=== PATIENT | male | born 1965 | race Caucasian/White ===

== ENCOUNTER 2018-05-29 09:46 | Emergency (ER) | payer MEDICAID, OTHER ==
[~2018-05-29] VITALS: Ht 177.8 cm; Wt 91.0 kg
[2018-05-29 09:53] VITALS: BP 172/105
[2018-05-29] MEDS ORDERED: GABA-532 PO (10:53)
== END 2018-05-29 11:06 | disposition home or self-care (01) ==
LOC: ER 09:46
DX: F10.20 Alcohol dependence, uncomplicated (principal); F17.200 Nicotine dependence, unspecified, uncomplicated; Y90.9 Presence of alcohol in blood, level not specified
CPT/HCPCS: 99283

== ENCOUNTER 2018-12-30 20:13 | Observation (INO) | payer MEDICAID, OTHER ==
[~2018-12-30] VITALS: Ht 177.8 cm; Wt 98.7 kg
[~2018-12-30 20:13] MED LIST: GABA-532 PO
[2018-12-30 20:42] LABS: BASOPHILS % (AUTO) 0.6 % (0-1); EOSINOPHILS # (AUTO) 0.1 X10'3 (0-0.9); EOSINOPHILS % (AUTO) 1.7 % (0-6); HEMATOCRIT 50.4 % (42.0-52.0); HEMOGLOBIN 17.4 g/dl (14.0-17.9); LYMPHOCYTES # (AUTO) 1.3 X10'3 (1.1-4.8); MEAN CORPUSCULAR HEMOGLOBIN 33.9 PG (27.0-31.0); MEAN CORPUSCULAR HGB CONC 34.6 g/dL (33.0-36.5); MEAN PLATELET VOLUME 6.3 FL (7.4-10.4); MONOCYTES # (AUTO) 0.5 X10'3 (0-0.9); MONOCYTES % (AUTO) 10.5 % (2-12); NEUTROPHILS # (AUTO) 3.2 X10'3 (1.8-7.7); NEUTROPHILS % (AUTO) 61.2 % (42-75); PLATELET COUNT 187 X10'3 (140-440); RED BLOOD COUNT 5.14 X10'6 (4.70-6.10); RED CELL DISTRIBUTION WIDTH 15.3 % (11.5-14.5); WHITE BLOOD COUNT 5.2 X10'3 (4.5-11.0)
[2018-12-30 20:55] LABS: PARTIAL THROMBOPLASTIN TIME 28 SECONDS (22-32)
[2018-12-30 20:57] LABS: ALANINE AMINOTRANSFERASE 93 U/L (12-78); ALBUMIN 3.8 G/DL (3.4-5.0); ALBUMIN/GLOBULIN RATIO 0.9 (1.1-1.5); ALKALINE PHOSPHATASE 89 IU/L (46-116); ANION GAP 13 (8-16); ASPARTATE AMINO TRANSFERASE 83 U/L (10-37); BILIRUBIN,TOTAL 0.7 MG/DL (0.1-1.0); BLOOD UREA NITROGEN 14 MG/DL (7-18); BUN/CREATININE RATIO 13.5 (5.4-32.0); CALCIUM 8.1 MG/DL (8.5-10.1); CHLORIDE 102 MMOL/L (99-107); CREATININE 1.04 MG/DL (0.60-1.10); GLUCOSE 122 MG/DL (70-104); POTASSIUM 3.7 MMOL/L (3.5-5.1); SODIUM 140 MMOL/L (135-145); TOTAL CARBON DIOXIDE 24.7 MMOL/L (24-32); eGFR 75 ML/MIN
[2018-12-30] MEDS ORDERED: enoxaparin 100mg/ml syringe SUBCUT ONE (21:10)
[2018-12-30] MEDS ORDERED: NO HOME MEDS (21:13)
[2018-12-30] MEDS ORDERED: haloperidol lactate 5mg/ml inj IM PRN (21:40)
[2018-12-30] MEDS ORDERED: ondansetron/PF 4mg/2ml inj IV PRN (21:40)
[2018-12-30] MEDS ORDERED: acetaminophen 325mg tablet PO PRN (21:40)
[2018-12-30] MEDS ORDERED: LORazepam 2 mg/ml vial IV PRN (21:40)
[2018-12-30] MEDS ORDERED: metoprolol tartrate 1mg/ml inj IV PRN (21:40)
[2018-12-30] MEDS ORDERED: LORazepam 1 MG tablet PO PRN (21:40)
[2018-12-30] MEDS ORDERED: nitroGLYCERIN 0.4mg SUBLingual tab SL PRN (21:40)
[2018-12-30] MEDS ORDERED: regadenoson 0.4mg/5ml syringe IV ONE (21:40)
[2018-12-30] MEDS ORDERED: mag hydrox/Alum hydrox/simeth 30ml oral suspension PO PRN (21:40)
[2018-12-30] MEDS ORDERED: magnesium hydroxide 30ml (MOM) UD suspension PO PRN (21:40)
[2018-12-30] MEDS ORDERED: haloperidol 5mg tablet PO PRN (21:40)
[2018-12-30] MEDS ORDERED: aminophylline 250mg/10ml inj. IV PRN (21:40)
[2018-12-30] MEDS ORDERED: regadenoson 0.4mg/5ml syringe IV PRN (21:50)
--- NOTE | 2018-12-30 22:01 | NUR ---
i have received report from [facility] ED. all questions and concerns addressed at this time. room 3016B prepped and ready to receive patient
[2018-12-30 22:15] VITALS: BP 158/112
[2018-12-30] MEDS: normal saline 1000ml 1,000 ML IV SCH (22:46)
[2018-12-31] VITALS (13 sets, daily range): BP systolic 123–174; BP diastolic 80–95
[2018-12-31 02:23] LABS: ALBUMIN 3.4 G/DL (3.4-5.0); ANION GAP 10 (8-16); BLOOD UREA NITROGEN 15 MG/DL (7-18); BUN/CREATININE RATIO 15.6 (5.4-32.0); CALCIUM 7.9 MG/DL (8.5-10.1); CHLORIDE 103 MMOL/L (99-107); CHOLESTEROL 201 MG/DL (0-200); CREATININE 0.96 MG/DL (0.60-1.10); GLUCOSE 111 MG/DL (70-104); HDL CHOLESTEROL 50 MG/DL (35-60); LDL CHOLESTEROL 124 MG/DL (50-100); POTASSIUM 3.3 MMOL/L (3.5-5.1); SODIUM 140 MMOL/L (135-145); TOTAL CARBON DIOXIDE 26.7 MMOL/L (24-32); TRIGLYCERIDES 218 MG/DL (20-135); eGFR 83 ML/MIN
--- NOTE | 2018-12-31 06:05 | NUR ---
Patient in room PCU 3016. I have received report from Vandana CEDILLO and had the opportunity to ask questions and assume patient care.
--- NOTE | 2018-12-31 06:12 | NUR ---
I HAVE GIVEN REPORT TO NGUYEN PEREZ. ALL QUESTIONS AND CONCERNS ADDRESSED AT THIS TIME.
[2018-12-31] MEDS ORDERED: regadenoson 0.4mg/5ml syringe IV PRN (07:00)
[2018-12-31] MEDS: thiamine 100mg tablet PO SCH (07:23)
[2018-12-31] MEDS: normal saline 1000ml 1,000 ML IV SCH ×2 (07:23→16:57)
[2018-12-31] MEDS ORDERED: magnesium 2GM in 50ml NS 50 ML IV ONE (09:40)
[2018-12-31] MEDS: potassium CL 10mEq/100ml bag 100 ML IV PRN ×3 (10:02→17:44)
--- NOTE | 2018-12-31 10:30 | NUR ---
Paged Dr. Barrett PAGER ID: [phone] MESSAGE: Andrew CEDLILO [phone] Curt Smith: Troponin came back 0.09, up from 0.07. Do you still want stress test or possible consult for cath? Lexiscan injection is TIME SENSITIVE; they need an answer. Also, EKG in chart for your viewing. Thanks
[2018-12-31] MEDS ORDERED: regadenoson 0.4mg/5ml syringe IV ONE (12:15)
--- NOTE | 2018-12-31 16:46 | NUR ---
Paged Dr. Barrett PAGER ID: [phone] MESSAGE: Andrew CEDILLO [phone] Curt Goddard: Stress test negative for fixed or reversible perfusion abnormalities. LVEF 75%. Can pt now eat and drink? Thank you.
--- NOTE | 2018-12-31 18:00 | NUR ---
Patient in room PCU 3016. I have received report from Andrew CEDILLO and had the opportunity to ask questions and assume patient care.
--- NOTE | 2018-12-31 18:15 | NUR ---
Problems reprioritized. Patient report given, questions answered & plan of care reviewed with Eliz CEDILLO.
--- NOTE | 2018-12-31 18:30 | NUR ---
Patient in room PCU 3016. I have received report from Andrew CEDILLO and had the opportunity to ask questions and assume patient care with Vandana CEDILLO.
[2018-12-31] MEDS: metoprolol tartrate 12.5mg (1/2 tablet) PO SCH (20:37)
[2018-12-31] MEDS: enoxaparin 40mg/0.4ml syringe SQ SCH (20:38)
[2018-12-31] MEDS ORDERED: atorvastatin 20mg tablet PO SCH (21:00)
[2018-12-31] MEDS ORDERED: potassium chloride 10mEq ER tablet PO ONE (22:31)
--- NOTE | 2018-12-31 22:31 | NUR ---
IV potassium causing vein irritaion. pharmacy no longer adds lidocaine to potassium IV. Order by Dr. Roper to give last 10 meq orally.
[2019-01-01] MEDS: acetaminophen 325mg tablet PO PRN ×2 (01:29→08:00)
[2019-01-01 02:00] VITALS: BP 152/88
--- NOTE | 2019-01-01 05:14 | NUR ---
Pt slept well tonight. Tylenol given for headache. Walked twice on hourly shift and up ad hermila the rest of the night.
[2019-01-01 05:59] LABS: BASOPHILS % (AUTO) 0.4 % (0-1); EOSINOPHILS % (AUTO) 1.2 % (0-6); HEMATOCRIT 45.3 % (42.0-52.0); HEMOGLOBIN 15.9 g/dl (14.0-17.9); LYMPHOCYTES # (AUTO) 0.5 X10'3 (1.1-4.8); LYMPHOCYTES % (AUTO) 13.3 % (21-51); MEAN CORPUSCULAR HEMOGLOBIN 34.2 PG (27.0-31.0); MEAN CORPUSCULAR HGB CONC 35.2 g/dL (33.0-36.5); MEAN CORPUSCULAR VOLUME 97.3 FL (78-98); MEAN PLATELET VOLUME 7.1 FL (7.4-10.4); MONOCYTES # (AUTO) 0.3 X10'3 (0-0.9); MONOCYTES % (AUTO) 7.2 % (2-12); NEUTROPHILS # (AUTO) 3.1 X10'3 (1.8-7.7); NEUTROPHILS % (AUTO) 77.9 % (42-75); PLATELET COUNT 108 X10'3 (140-440); RED BLOOD COUNT 4.66 X10'6 (4.70-6.10); RED CELL DISTRIBUTION WIDTH 14.6 % (11.5-14.5); WHITE BLOOD COUNT 3.9 X10'3 (4.5-11.0)
--- NOTE | 2019-01-01 06:00 | NUR ---
Patient in room PCU 3016. I have received report from NGUYEN Wellington and NGUYEN Ross and had the opportunity to ask questions and assume patient care. patient is currently resting in bed, complaining of headache, will look to see what meds he has available and treat. No acute distress, will continue to monitor.
[2019-01-01 06:15] LABS: ALBUMIN 3.4 G/DL (3.4-5.0); ANION GAP 10 (8-16); BLOOD UREA NITROGEN 16 MG/DL (7-18); BUN/CREATININE RATIO 21.3 (5.4-32.0); CALCIUM 8.2 MG/DL (8.5-10.1); CHLORIDE 100 MMOL/L (99-107); CREATININE 0.75 MG/DL (0.60-1.10); GLUCOSE 86 MG/DL (70-104); POTASSIUM 3.7 MMOL/L (3.5-5.1); SODIUM 135 MMOL/L (135-145); TOTAL CARBON DIOXIDE 25.4 MMOL/L (24-32); eGFR > 90 ML/MIN
--- NOTE | 2019-01-01 06:27 | NUR ---
Orientee documentation: I have reviewed and agree with all interventions, assessments performed and documented by Vandana CEDILLO.
[2019-01-01 06:30] VITALS: BP 169/96
--- NOTE | 2019-01-01 06:32 | NUR ---
Problems reprioritized. Patient report given, questions answered & plan of care reviewed with Gloria CEDILLO.
[2019-01-01] MEDS: thiamine 100mg tablet PO SCH (07:55)
[2019-01-01] MEDS: enoxaparin 40mg/0.4ml syringe SQ SCH (07:55)
[2019-01-01] MEDS ORDERED: aspirin 325mg tablet, delayed-release (Ecotrin) PO SCH (08:00)
[2019-01-01] MEDS: metoprolol tartrate 12.5mg (1/2 tablet) PO SCH (08:00)
[2019-01-01] MEDS ORDERED: LORazepam 1 MG tablet PO PRN (09:30)
--- NOTE | 2019-01-01 10:23 | NUR ---
Dr. Rabago at bedside, received order for ativan for patient's alcohol withdrawal symptoms. Patient states he wants to stop drinking again. Patient will be kept while withdrawal symptoms subside.
[2019-01-01 11:00] VITALS: BP 158/91
[2019-01-01] MEDS ORDERED: thiamine tablet PO (11:51)
[2019-01-01] MEDS ORDERED: ATI1T PO (11:51)
[2019-01-01] MEDS ORDERED: FOLI1TAB16 PO (11:51)
[2019-01-01] MEDS ORDERED: ATOR20TA66 PO (11:51)
[2019-01-01] MEDS ORDERED: METO25TA6 PO (11:51)
[2019-01-01] MEDS ORDERED: ASPI81TA52 PO (11:51)
--- NOTE | 2019-01-01 13:06 | NUR ---
PAGER ID: [phone] MESSAGE: Gloria CEDILLO Ext [phone] discharge orders not finished, unable to DC patient until that portion complete. Thank you.
--- NOTE | 2019-01-01 13:43 | NUR ---
Patient given discharge instructions and printed prescriptions. Patient verbalizes understanding of discharge orders and denies questions or concerns at this time. Belongings gathered by patient. PIV removed with tip intact. Patient ambulated downstairs with assistance from Vy RN. Patient verbalizes desire to return in order to pickup letter for work which was to be provided by social work. Patient stable at time of discharge.
== END 2019-01-01 13:35 | disposition home or self-care (01) ==
LOC: ER 20:14 → PCU 3S 22:28 → UNDOADMIN 22:28 → INTOOBSV 22:33 → PCU 3S 22:33 → CMPBEDREQ 12-31 17:25
PROVIDERS: ADMIT Hospitalist; ATTEND Hospitalist
DX: R07.9 Chest pain, unspecified (principal); E78.5 Hyperlipidemia, unspecified; F10.239 Alcohol dependence with withdrawal, unspecified; I21.A1 Myocardial infarction type 2; F17.210 Nicotine dependence, cigarettes, uncomplicated
CPT/HCPCS: 36415; 71045; 78452; 80048; 80053; 80061; 82948; 84484; 85025; 85610; 85730; 87081; 93005; 93017; 96365; 96366; 96372; 99284; A9500; G0378; J0280; J2785; J3475; J3480; J7030; 99285; J1650

== ENCOUNTER 2019-06-25 13:06 | Emergency (ER) | payer MEDICAID, OTHER ==
[~2019-06-25] VITALS: Ht 177.8 cm; Wt 103.0 kg
[~2019-06-25 13:06] MED LIST changes: +ASPI81TA52 PO; +ATI1T PO; +ATOR20TA66 PO; +FOLI1TAB16 PO; -GABA-532 PO; +METO25TA6 PO; +thiamine tablet PO
--- NOTE | 2019-06-25 13:40 | NUR ---
DR HELMSFS AT BEDSIDE
[2019-06-25 13:46] LABS: BASOPHILS % (AUTO) 0.2 % (0-1); EOSINOPHILS # (AUTO) 0.1 X10'3 (0-0.9); EOSINOPHILS % (AUTO) 0.7 % (0-6); HEMATOCRIT 50.8 % (42.0-52.0); HEMOGLOBIN 17.9 g/dl (14.0-17.9); LYMPHOCYTES # (AUTO) 1.1 X10'3 (1.1-4.8); LYMPHOCYTES % (AUTO) 11.6 % (21-51); MEAN CORPUSCULAR HGB CONC 35.2 g/dL (33.0-36.5); MEAN PLATELET VOLUME 6.6 FL (7.4-10.4); MONOCYTES # (AUTO) 0.6 X10'3 (0-0.9); NEUTROPHILS # (AUTO) 7.5 X10'3 (1.8-7.7); NEUTROPHILS % (AUTO) 81.5 % (42-75); PLATELET COUNT 170 X10'3 (140-440); RED BLOOD COUNT 5.58 X10'6 (4.70-6.10); RED CELL DISTRIBUTION WIDTH 13.9 % (11.5-14.5); WHITE BLOOD COUNT 9.2 X10'3 (4.5-11.0)
[2019-06-25 13:59] LABS: ALANINE AMINOTRANSFERASE 42 U/L (12-78); ALBUMIN/GLOBULIN RATIO 0.9 (1.1-1.5); ALKALINE PHOSPHATASE 117 IU/L (46-116); ANION GAP 8 (8-16); ASPARTATE AMINO TRANSFERASE 34 U/L (10-37); BILIRUBIN,TOTAL 1.1 MG/DL (0.1-1.0); BLOOD UREA NITROGEN 11 MG/DL (7-18); BUN/CREATININE RATIO 12.6 (5.4-32.0); CALCIUM 8.7 MG/DL (8.5-10.1); CHLORIDE 101 MMOL/L (99-107); CREATININE 0.87 MG/DL (0.60-1.10); GLUCOSE 112 MG/DL (70-104); POTASSIUM 4.4 MMOL/L (3.5-5.1); SODIUM 139 MMOL/L (135-145); TOTAL CARBON DIOXIDE 30.4 MMOL/L (24-32); TOTAL PROTEIN 8.3 G/DL (6.4-8.2); eGFR > 90 ML/MIN
[2019-06-25] MEDS: meclizine 12.5mg tablet PO ONE (14:10)
[2019-06-25] MEDS: LORazepam 2 mg/ml vial IV ONE (14:10)
[2019-06-25] MEDS: normal saline 1000ML IV soln IVB ONE (14:10)
[2019-06-25] MEDS ORDERED: MECL-159 PO (14:36)
[2019-06-25 15:23] VITALS: BP 148/95
--- NOTE | 2019-06-25 15:23 | NUR ---
pt is trying to find a ride home
== END 2019-06-25 15:58 | disposition home or self-care (01) ==
LOC: ER 13:07
DX: R42 Dizziness and giddiness (principal); I25.2 Old myocardial infarction; Z79.82 Long term (current) use of aspirin; Z79.899 Other long term (current) drug therapy
CPT/HCPCS: 36415; 71045; 80053; 84484; 85025; 93005; 96361; 96374; 99284; J2060; J7030; J8597

== ENCOUNTER → 2021-05-18 | Emergency (ER) | payer MEDICAID, OTHER ==
[~2021-05-18] VITALS: Ht 177.8 cm; Wt 100.0 kg
[~2021-05-18] MED LIST changes: +LOP25T PO; +MECL-159 PO; +MECL-226 PO; -METO25TA6 PO; +ONDA4TAB6 PO
[2021-05-18 11:43] LABS: BASOPHILS % (AUTO) 0.5 % (0-1); EOSINOPHILS # (AUTO) 0.1 X10'3 (0-0.9); EOSINOPHILS % (AUTO) 1.3 % (0-6); HEMATOCRIT 50.1 % (42.0-52.0); HEMOGLOBIN 17.4 g/dl (14.0-17.9); LYMPHOCYTES # (AUTO) 0.8 X10'3 (1.1-4.8); LYMPHOCYTES % (AUTO) 14.4 % (21-51); MEAN CORPUSCULAR HEMOGLOBIN 34.2 PG (27.0-31.0); MEAN CORPUSCULAR HGB CONC 34.7 g/dL (33.0-36.5); MEAN CORPUSCULAR VOLUME 98.4 FL (78-98); MEAN PLATELET VOLUME 7.2 FL (7.4-10.4); MONOCYTES # (AUTO) 0.5 X10'3 (0-0.9); NEUTROPHILS # (AUTO) 3.9 X10'3 (1.8-7.7); NEUTROPHILS % (AUTO) 74.8 % (42-75); PLATELET COUNT 173 X10'3 (140-440); RED BLOOD COUNT 5.09 X10'6 (4.70-6.10); WHITE BLOOD COUNT 5.3 X10'3 (4.5-11.0)
--- NOTE | 2021-05-18 11:55 | NUR ---
Pt is awake and alert. C/O pain that radiates down R UE intermitantly. Dr Whatley at the bedside.
[2021-05-18 12:17] VITALS: BP 145/98
[2021-05-18 12:24] LABS: ALANINE AMINOTRANSFERASE 43 U/L (12-78); ALBUMIN 3.8 G/DL (3.4-5.0); ALBUMIN/GLOBULIN RATIO 0.9 (1.1-1.5); ALKALINE PHOSPHATASE 71 IU/L (46-116); ASPARTATE AMINO TRANSFERASE 37 U/L (10-37); BILIRUBIN,TOTAL 0.9 MG/DL (0.1-1.0); BLOOD UREA NITROGEN 13 MG/DL (7-18); BUN/CREATININE RATIO 14.8 (5.4-32.0); CALCIUM 9.2 MG/DL (8.5-10.1); CREATININE 0.88 MG/DL (0.60-1.10); GLUCOSE 114 MG/DL (70-104); TOTAL CARBON DIOXIDE 28.4 MMOL/L (24-32); TOTAL PROTEIN 7.9 G/DL (6.4-8.2); eGFR 90 ML/MIN
[2021-05-18 12:38] LABS: CHLORIDE 101 MMOL/L (99-107); POTASSIUM 4.4 MMOL/L (3.5-5.1)
[2021-05-18 12:41] LABS: ANION GAP 8 (8-16); SODIUM 137 MMOL/L (135-145)
== END | disposition home or self-care (01) ==
LOC: ER 09:46
DX: H81.10 Benign paroxysmal vertigo, unspecified ear (principal); G56.00 Carpal tunnel syndrome, unspecified upper limb; I10 Essential (primary) hypertension; R51.9 Headache, unspecified; R20.0 Anesthesia of skin; E78.00 Pure hypercholesterolemia, unspecified; I25.2 Old myocardial infarction; Z72.89 Other problems related to lifestyle; Z79.82 Long term (current) use of aspirin; Z79.899 Other long term (current) drug therapy
CPT/HCPCS: 36415; 71045; 80053; 83880; 84484; 85025; 93005; 99285